=== PATIENT | female | born 1990 | race African-American/Black ===

== ENCOUNTER 2017-12-24 12:38 | Emergency (ER) | payer OTHER, SELFPAY ==
[2017-12-24] MEDS ORDERED: Ibuprofen 800 MG TAB ONE (13:22)
--- NOTE | 2017-12-24 14:24 | RAD ---
LEFT WRIST 4 VIEWS: Date: 12/24/17 HISTORY: Wrist pain. FINDINGS: Carpals are normally aligned. No fracture identified. IMPRESSION: No acute abnormality identified. POS: [facility]
== END 2017-12-24 14:39 | disposition home or self-care (01) ==
LOC: ERS 12:38
DX: M25.532 Pain in left wrist (principal); F17.290 Nicotine dependence, other tobacco product, uncomplicated; F41.9 Anxiety disorder, unspecified; Z79.899 Other long term (current) drug therapy

== ENCOUNTER 2018-06-02 02:06 | Emergency (ER) | payer OTHER ==
--- NOTE | 2018-06-02 08:33 | RAD ---
PORTABLE CHEST: DATE: 06/02/2018. PROVIDED CLINICAL HISTORY: Chest pain. FINDINGS: Comparison 05/15/2013. Cardiac silhouette appears enlarged, which may be at least partially on the basis of portable techniq ue. No focal consolidation, pleural fluid, or pneumothorax apparent. IMPRESSION: No evidence for an acute cardiopulmonary process. POS: [facility]
--- NOTE | 2018-06-07 14:27 | EKG ---
Test Reason : ANXIETY Blood Pressure : / mmHG Vent. Rate : 095 BPM Atrial Rate : 095 BPM P-R Int : 126 ms QRS Dur : 082 ms QT Int : 354 ms P-R-T Axes : 045 054 010 degrees QTc Int : 444 ms Normal sinus rhythm Normal ECG Confirmed by ANA DIAZ, SANTA Jacobsen ([id number]), associate entertainment editor TAY PACHECO ([id number] on 06/07/2018 2:26:44 PM Referred By: Confirmed By:SANTA PEREZ MD
== END 2018-06-02 03:40 | disposition home or self-care (01) ==
LOC: ERS 02:06
DX: F41.0 Panic disorder [episodic paroxysmal anxiety] (principal); R07.89 Other chest pain; Z79.899 Other long term (current) drug therapy
CPT/HCPCS: 71045; 93005

== ENCOUNTER 2018-10-09 13:21 | Emergency (ER) | payer OTHER ==
[2018-10-09 14:11] LABS: Bilirubin Negative (Negative); Blood, Urine Negative (Negative); Clarity CLOUDY (Clear); Glucose, Urine (Dipstick) Negative (Negative); Leukocyte Negative (Negative); Nitrite Negative (Negative); Protein, Urine (Dipstick) Negative (Neg-Trace); Specific Gravity, Urine 1.021 (1.002-1.036); Urobilinogen 0.2 mg/dL (0.2-1.0); pH, Urine 6.5 (5.0-9.0)
[2018-10-09 14:14] LABS: Pregnancy Test - Urine (BHCG) Negative (Negative); Pregu Control Background? CLEAR/WHITE (CLR/WHITE); Pregu Control Bar Appear? YES (CONTROL BAR); Specific Gravity 1.021 (1.002-1.036)
[2018-10-09 14:40] LABS: #Basophils 0.1 thou/uL (0.0-0.2); #Eosinphils 0.4 thou/uL (0.0-0.7); #Monocytes 0.5 thou/uL (0.11-0.59); #Neutrophils 3.3 thou/uL (1.40-6.50); %Basophils 1.5 % (0.0-1.0); %Eosinophils 5.9 % (0.0-10.0); %Lymphocytes 32.5 % (21.0-51.0); %Monocytes 7.5 % (0.0-10.0); %Neutrophils 52.6 % (42.0-75.0); Hemoglobin 12.1 g/dL (12.0-16.0); Mean Corpuscular Hemoglobin 29.3 pg (27.0-31.0); Mean Corpuscular Volume 91.7 fL (78.0-98.0); Platelet Count 282 thou/uL (130-400); Red Blood Cell (RBC) Count 4.14 mill/uL (4.20-5.40); White Blood Cell (WBC) Count 6.2 thou/uL (4.8-10.8)
[2018-10-09 14:57] LABS: ALT (SGPT) 20 U/L (8-55); AST (SGOT) 18 U/L (5-34); Albumin 4.1 g/dL (3.5-5.0); Alkaline Phosphatase 55 U/L (40-150); Anion Gap 11 mmol/L (10-20); BUN (Urea Nitrogen) 10 mg/dL (7.0-18.7); Bilirubin, Total Less than 0.2 mg/dL (0.2-1.2); Calc. Creatinine Clearance 0 mL/min (70-130); Calcium 9.8 mg/dL (7.8-10.44); Carbon Dioxide 26 mmol/L (22-29); Chloride 106 mmol/L (98-107); Estimated GFR-MDRD Greater than 90; Globulin 3.2 g/dL (2.4-3.5); Glucose 95 mg/dL (70-105); Lipase 30 U/L (8-78); Potassium 4.6 mmol/L (3.5-5.1); Protein, Total 7.3 g/dL (6.0-8.3); Sodium 138 mmol/L (136-145)
--- NOTE | 2018-10-09 15:04 | RAD ---
KUB AND UPRIGHT: History: Abdominal pain. FINDINGS: Bowel gas pattern is nonobstructed. No free air. No radiopaque calculi or significant bony findings. IMPRESSION: Unremarkable abdominal series. POS: [facility]
[2018-10-09] MEDS ORDERED: Ketorolac Tromethamine 30 MG/ML VIAL ONE (15:55)
[2018-10-11 22:59] LABS: Chlamydia by PCR Not Detected (NotDetected); GC by PCR Not Detected (NotDetected)
== END 2018-10-09 16:10 | disposition home or self-care (01) ==
LOC: ERS 13:21
DX: R10.9 Unspecified abdominal pain (principal); N76.0 Acute vaginitis; I10 Essential (primary) hypertension; F41.9 Anxiety disorder, unspecified
CPT/HCPCS: 36415; 74019; 80053; 81003; 81025; 83690; 85025; 87480; 87491; 87510; 87591; 87660; 96372; J1885

== ENCOUNTER 2018-10-18 10:25 | Outpatient (CLI) | payer OTHER ==
--- NOTE | 2018-10-18 10:55 | ULT ---
PELVIC SONOGRAM TRANSABDOMINAL IMAGING WITH DUPLEX EVALUATION: HISTORY: Pelvic pain. FINDINGS: Urinary bladder is decompressed. Uterus is retroverted and is 10.1 cm. Endometrium is 0.7 cm. No f ree fluid. The right ovary is 3.1 cm and the left is 4.1 cm. Each has a normal sonographic appearance with good color and spectral Doppler flow. IMPRESSION: Retroverted uterus. No other significant abnormalities are demonstrated. POS: [facility]
== END 2018-10-18 10:26 | disposition home or self-care (01) ==
LOC: BICULT 10:25
PROVIDERS: ATTEND Family Medicine
DX: R10.9 Unspecified abdominal pain (principal); N85.4 Malposition of uterus
CPT/HCPCS: 76856; 93976

== ENCOUNTER 2018-12-10 09:02 | Emergency (ER) | payer OTHER ==
[2018-12-10 09:57] LABS: #Eosinphils 0.2 thou/uL (0.0-0.7); #Lymphocytes 1.8 thou/uL (1.20-3.40); #Monocytes 0.4 thou/uL (0.11-0.59); #Neutrophils 2.4 thou/uL (1.40-6.50); %Basophils 0.8 % (0.0-1.0); %Lymphocytes 36.3 % (21.0-51.0); %Monocytes 8.7 % (0.0-10.0); %Neutrophils 49.2 % (42.0-75.0); Hemoglobin 12.8 g/dL (12.0-16.0); Mean Corpuscular HGB CONC 32.6 g/dL (32.0-36.0); Mean Corpuscular Hemoglobin 29.9 pg (27.0-31.0); Mean Corpuscular Volume 91.5 fL (78.0-98.0); Mean Platelet Volume 7.8 fL (7.4-10.4); Platelet Count 279 thou/uL (130-400); RBC Distribution Width 14.6 % (11.5-14.5)
[2018-12-10] MEDS ORDERED: Pantoprazole 40 MG VIAL ONE (10:02)
[2018-12-10] MEDS ORDERED: Ketorolac Tromethamine 30 MG/ML VIAL ONE (10:02)
[2018-12-10 10:14] LABS: BHCG - Serum Negative (NEGATIVE); Pregs Control Background? CLEAR/WHITE (CLR/WHITE); Pregs Control Bar Appear? YES (CONTROL BAR)
[2018-12-10 10:30] LABS: Bilirubin Negative (Negative); Blood, Urine Negative (Negative); Clarity CLOUDY (Clear); Glucose, Urine (Dipstick) Negative (Negative); Leukocyte Negative (Negative); Nitrite Negative (Negative); Protein, Urine (Dipstick) Negative (Neg-Trace); Specific Gravity, Urine 1.003 (1.002-1.036); Urobilinogen 0.2 mg/dL (0.2-1.0); pH, Urine 6.5 (5.0-9.0)
[2018-12-10 10:35] LABS: ALT (SGPT) 16 U/L (8-55); AST (SGOT) 20 U/L (5-34); Albumin 4.4 g/dL (3.5-5.0); Alkaline Phosphatase 50 U/L (40-150); Anion Gap 10 mmol/L (10-20); BUN (Urea Nitrogen) 8 mg/dL (7.0-18.7); Bilirubin, Total 0.2 mg/dL (0.2-1.2); Calc. Creatinine Clearance 0 mL/min (70-130); Calcium 10.1 mg/dL (7.8-10.44); Carbon Dioxide 25 mmol/L (22-29); Chloride 108 mmol/L (98-107); Estimated GFR-MDRD Greater than 90; Globulin 3.2 g/dL (2.4-3.5); Glucose 86 mg/dL (70-105); Lipase 19 U/L (8-78); Potassium 3.9 mmol/L (3.5-5.1); Protein, Total 7.6 g/dL (6.0-8.3); Sodium 139 mmol/L (136-145)
--- NOTE | 2018-12-10 12:15 | ULT ---
GALLBLADDER ULTRASOUND: INDICATIONS: Abdominal pain. FINDINGS: The gallbladder has a normal sonographic appearance. No evidence of gallstones. The common duct is of normal caliber. The pancreas is mostly obscured and is not well evaluated. The visualized liver and right kidney appear unremarkable as visualized. IMPRESSION: Unremarkable gallbladder ultrasound. POS: [facility]
== END 2018-12-10 11:10 | disposition home or self-care (01) ==
LOC: ERS 09:02
DX: R10.13 Epigastric pain (principal); F41.9 Anxiety disorder, unspecified; Z79.899 Other long term (current) drug therapy
CPT/HCPCS: 36415; 76705; 80053; 81003; 83690; 84703; 85025; 87086; C9113; J1885

== ENCOUNTER 2019-02-26 21:33 | Emergency (ER) | payer OTHER, SELFPAY ==
[2019-02-26] MEDS ORDERED: HYDROcodone/Acetaminophen 5/325 mg Tablet ONE (22:37)
--- NOTE | 2019-02-26 22:51 | CT ---
CT head noncontrast HISTORY: Fall. Head injury. FINDINGS: There is no evidence of acute intracranial hemorrhage or infarct. The ventricles appear nor mal in size, shape and position. There is no mass effect or shift of midline structures. Visualized paranasal sinuses remain well aerated. IMPRESSION: No acute intracranial abnormalities are demonstrated.
--- NOTE | 2019-02-26 22:54 | CT ---
CT cervical spine noncontrast HISTORY: Fall. Neck injury. FINDINGS: Vertebral body heights are maintained. Gentle recurrent reversal of the normal lordotic cur vature. Cervicothoracic junction is intact. No acute fracture or dislocation. IMPRESSION: No acute osseous abnormalities are demonstrated.
== END 2019-02-26 23:36 | disposition home or self-care (01) ==
LOC: ERS 21:33
DX: M54.2 Cervicalgia (principal); F41.9 Anxiety disorder, unspecified; Z79.899 Other long term (current) drug therapy; W17.89XA Other fall from one level to another, initial encounter
CPT/HCPCS: 70450; 72125

== ENCOUNTER 2019-03-26 01:07 | Emergency (ER) | payer SELFPAY ==
[2019-03-26 02:30] LABS: Bilirubin Negative (Negative); Blood, Urine Negative (Negative); Clarity Clear (Clear); Glucose, Urine (Dipstick) Normal (Negative); Leukocyte Negative Leu/uL (Negative); Nitrite Negative (Negative); Protein, Urine (Dipstick) Negative (Neg-Trace); Urobilinogen Normal mg/dL (Less than 2)
[2019-03-26 02:32] LABS: Pregnancy Test - Urine (BHCG) Negative (Negative); Pregu Control Background? CLEAR/WHITE (CLR/WHITE); Pregu Control Bar Appear? YES (CONTROL BAR)
== END 2019-03-26 03:01 | disposition home or self-care (01) ==
LOC: ERS 01:07
DX: J06.9 Acute upper respiratory infection, unspecified (principal); F41.9 Anxiety disorder, unspecified
CPT/HCPCS: 81003; 81025; 87804; 99283

== ENCOUNTER 2019-05-12 16:35 | Emergency (ER) | payer SELFPAY | END 2019-05-12 17:21 | disposition home or self-care (01) | LOC: ERS 16:35 | DX: F41.9 Anxiety disorder, unspecified (principal); Z79.899 Other long term (current) drug therapy | CPT/HCPCS: 99283 ==

== ENCOUNTER 2019-05-26 09:41 | Emergency (ER) | payer SELFPAY ==
[2019-05-26 10:10] LABS: Bilirubin Negative (Negative); Blood, Urine Negative (Negative); Clarity Turbid (Clear); Glucose, Urine (Dipstick) Normal (Negative); Leukocyte Negative Leu/uL (Negative); Nitrite Negative (Negative); Protein, Urine (Dipstick) 10 mg/dL (Neg-Trace); Urobilinogen Normal mg/dL (Less than 2)
[2019-05-26] MEDS ORDERED: Ondansetron ODT 8 MG TAB ONE (10:25)
[2019-05-26 10:56] LABS: Pregnancy Test - Urine (BHCG) Negative (Negative); Pregu Control Background? CLEAR/WHITE (CLR/WHITE); Pregu Control Bar Appear? YES (CONTROL BAR); Specific Gravity 1.026 (1.002-1.036)
== END 2019-05-26 11:21 | disposition home or self-care (01) ==
LOC: ERS 09:41
DX: R11.2 Nausea with vomiting, unspecified (principal); F41.9 Anxiety disorder, unspecified; Z79.899 Other long term (current) drug therapy
CPT/HCPCS: 81003; 81025; 99283; J7620

== ENCOUNTER 2019-08-28 06:50 | Emergency (ER) | payer SELFPAY ==
[2019-08-28] MEDS ORDERED: Ondansetron ODT 4 MG TAB ONE (07:35)
--- NOTE | 2019-08-29 07:26 | RAD ---
XR Chest Pa Lat STANDARD HISTORY: Fever COMPARISON: 06/02/2018 FINDINGS: The heart size is normal. The lungs are well expanded without focal areas of consolidation, pneumothorax or pleural effusions. IMPRESSION: No radiographic evidence of acute cardiopulmonary process.
== END 2019-08-28 08:41 | disposition home or self-care (01) ==
LOC: ERS 06:50
DX: J06.9 Acute upper respiratory infection, unspecified (principal); F41.9 Anxiety disorder, unspecified; F17.200 Nicotine dependence, unspecified, uncomplicated
CPT/HCPCS: 71046; 87804; Q0162

== ENCOUNTER 2020-01-19 08:20 | Emergency (ER) | payer SELFPAY | END 2020-01-19 09:44 | disposition short-term general hospital (02) | LOC: ERS 08:20 | DX: M54.5 Low back pain (principal); R05 Cough; F41.9 Anxiety disorder, unspecified; F17.210 Nicotine dependence, cigarettes, uncomplicated | CPT/HCPCS: 99281 ==

== ENCOUNTER 2020-09-20 13:15 | Emergency (ER) | payer OTHER, SELFPAY ==
[2020-09-20] MEDS ORDERED: Ibuprofen 200 MG TAB ONE (13:56)
== END 2020-09-20 14:53 | disposition home or self-care (01) ==
LOC: ERS 13:15
DX: M79.18 Myalgia, other site (principal); V44.6XXA Car passenger injured in collision with heavy transport vehicle or bus in traffic accident, initial encounter